=== PATIENT | male | born 1970 | race Hispanic/Latino ===

== ENCOUNTER 2018-10-14 16:27 | Emergency (ER) | payer SELFPAY ==
[2018-10-14] MEDS ORDERED: Lidocaine 1% (PF) 30 ML VIAL ONE (16:43)
[2018-10-14] MEDS ORDERED: Bupivacaine 0.5% 10 ML VIAL ONE (16:43)
[2018-10-14] MEDS ORDERED: Bacitracin Zinc 1 Packet ONE (18:01)
--- NOTE | 2018-10-14 18:24 | RAD ---
THREE VIEWS LEFT THUMB: History: Trauma as well as foreign body. FINDINGS: AP, lateral, and oblique views of the left thumb is obtained. Images demonstrate a comminuted fracture in the distal left phalanx of the first digit left hand. There is also a radiopaque hook dorsal to the fractured phalanx. IMPRESSION: Radiopaque hook-like foreign body in the soft tissues. There is also a comminuted fracture involving the distal phalanx first digit left hand. POS: [facility]
== END 2018-10-14 18:14 | disposition home or self-care (01) ==
LOC: ERS 16:27
DX: S62.521B Displaced fracture of distal phalanx of right thumb, initial encounter for open fracture (principal); S60.351A Superficial foreign body of right thumb, initial encounter; W22.8XXA Striking against or struck by other objects, initial encounter; Y92.69 Other specified industrial and construction area as the place of occurrence of the external cause; Y99.0 Civilian activity done for income or pay
CPT/HCPCS: 12001; J2001; J3490